=== PATIENT | male | born 2005 ===

== ENCOUNTER 2025-01-18 21:57 | Emergency (ER) | payer MEDICAID, SELFPAY ==
--- NOTE | ~2025-01-18 | XR_ITS ---
CLINICAL HISTORY: post injury 2 view left knee Comparison: None Findings: No fractures or dislocations. No significant loss of joint space, osteophytes, or erosions. [id number] joint effusion. No radiopaque foreign body. IMPRESSION: 1. No acute fracture or dislocation. 2. Joint effusion. This document has been electronically signed by: Nereyda Green MD on 01/18/2025 22:40:38
[2025-01-18 22:01] VITALS: BP 117/57; PULSE 70; RESP 16; TEMP 36.9; O2SAT 98; BMI 28.9
--- NOTE | 2025-01-19 00:51 | ED.LOWEXIN ---
HPI - Extremity Injury (Lower) General Chief Complaint: Extremity Injury, Lower Stated Complaint: left knee inj Time Seen by Provider: 01/19/25 00:51 Source: patient, RN notes reviewed and other (significant other) Mode of arrival: ambulatory Limitations: no limitations History of Present Illness ED Provider: Quiana Green PA-C HPI Narrative: 19-year-old male presenting to emergency department today for evaluation of left-sided knee discomfort. He reports he has been aggravating him for several months now. He does go to college and he recently just finishing he likes to play basketball in his down time. He does lot of pivoting and shifting in this and notices that the more he does this the more it aggravates his knee. He points to the area just lateral and superior to his patella. He denies any pain posteriorly radiating down or upwards towards her hip ankle or knee. He has no falls and no trauma. Denying any paresthesias or weakness. He does report today while playing basketball he did a pivoting shifting and felt a popping sensation in his knee. Reports that he is able to bear weight but it is painful especially the more that he walks. He has no known prior trauma to this area in the past. Right knee is unaffected. He tried icing at home and Tylenol and while icing has helped Tylenol has made no difference. He did take Motrin at 02:00 yesterday afternoon and it helped more. He was concerned about going back to his hometown without having his knee evaluated for sought medical attention here. Related Data Allergies Allergy/AdvReac Type Severity Reaction Status Date / Time No Known Allergies Allergy Verified 01/18/25 22:03 Review of Systems Review of Systems: Yes all other systems are reviewed and are negative [facility] Past Medical History Attestation statement: The following information was validated with the patient. Source: nursing notes reviewed Social History Social History Advance Directives: No Do you have a plan to hurt others: No Plan Physical Exam Vital Signs: Vital Signs: Last Vital Signs Temp 98.5 F 01/18/25 22:01 Pulse 70 01/18/25 22:01 Resp 16 01/18/25 22:01 BP 117/57 L 01/18/25 22:01 Pulse Ox 98 01/18/25 22:01 O2 Del Method Room Air 01/18/25 22:01 BMI result Body Mass Index 28.9 General: Appears in no acute distress, appears well nourished body habitus is normal, appears stated age. No septic or ill-appearing. Vitals reviewed normal, PMH/Social and Surgical hx reviewed including allergies and current medications. Head: Normocephalic, no obvious trauma or skin lesions noted. Eyes: EOMI ENMT: moist oral mucosa Neck: trachea midline Cardiovascular: peripheral perfusion normal, Regular heart rate Respiratory: no respiratory distress Abdomen: nondistended Extremities: warm and moving without difficulty unless otherwise detailed in physical exam if applicable. Patient is mildly tender to palpation over his left anterior knee over the area of the lateral femoral condyle. There is no soft tissue swelling or erythema or ecchymosis. No instability noted. Negative anterior/posterior drawer no laxity noted of the medial collateral lateral collateral ligament. Negative Lenore test for both medial and lateral meniscus. Negative Homans and Beauchamp sign compartments are soft cap refill is less than 3 seconds distal pulses are 2+ gait is antalgic with favoring of the left lower extremity. Able to move the distal extremity without any difficulty. DTRs are intact no bony tenderness of the rest of the left lower extremity or right lower extremity Psych: Cooperative Neuro: Alert and oriented. Const: General: cooperative and healthy appearing Medical Decision Making Medical Decision Making MDM Narrative: Patient presents to ED today for evaluation of left-sided knee pain . SHALINI is repetitive pivoting and shifting. This is not work related. H and P as above. Patient is afebrile with stable vitals and well-appearing. ?History and physical as stated above. ?Patient is neurovascular intact in the affected extremity. ?X-rays were obtained to further evaluate. At this time no evidence of NVC to warrant further work up/ intervention or consult. They show no acute fractures but there is small joint effusion. ?Patient's symptoms are consistent with a left knee sprain without any obvious evidence for internal knee derangement. ?Patient?s left knee ?was placed in an Angelito wrap. ?Discussed icing it, elevating and alternating ibuprofen and Tylenol for discomfort. ?Discussed that there is no significant improvement in the next 1 to 2 weeks to follow-up with an ?orthopedic clinic, information given. Discussed symptomatic treatment with the patient. ?Discussed return precautions. ?Patient verbalized understanding of the above plan and is in agreement with the above plan. ?The patient was discharged home in stable condition with return precautions. Differential Diagnosis Differential Diagnoses: The differential diagnosis associated with the presentation includes Left knee fracture left knee dislocation, neurovascular compromise, internal knee derangement, meniscal injury, collateral ligament injury, patellar femoral syndrome Admission/Observation Consideration of admission/observation: Escalation of care including admission/observation considered Patient would have been admitted to the hospital had his work up had any findings where hospital admission was appropriate and his clinical presentation warranted hospital admission. Independent Interpretation I performed an independent interpretation of an: Plain X-Ray Interpretation: No fracture or dislocation Radiology Impression Discussion of test interpretation with radiology: I have reviewed the radiologist's reading. Radiologist Impression: No fracture or dislocation small joint effusion noted Tests considered The following testing was considered but not selected: We are considered compartment pressure checking had there been any evidence for neurovascular compromise Prescription Management I considered prescription management with: Pain Medication Pain is well-controlled no additional pain medicine as required Discharge Plan Discharge Clinical Impression: Effusion of knee joint, left Left knee sprain Qualifiers: Encounter type: sequela Involved ligament of knee: unspecified ligament Qualified Code(s): S83.92XS - Sprain of unspecified site of left knee, sequela Patient Disposition: Home, Self-Care Instructions: Knee Sprain (ED), How to Use an Elastic Bandage (ED), Crutch Instructions (ED) Additional Instructions: You were evaluated for an injury to your knee.? You had x-rays done that did not show any acute fracture or other significant abnormality. Use the knee brace for the next 7-10 days.? Use Motrin/Advil (ibuprofen) 400-600 mg every 6 to 8 hours? as needed for pain. In addition, You can use Tylenol (acetaminophen) 650 mg every 6 hrs as needed for pain.? Do not take more than 3000 mg in one day! Use intermittent ice 4 or 5 times a day, 20 minutes at a time,? for a few days. Elevate the extremity as much as possible Return immediately or go to the ER for increased or uncontrolled pain, numbness, tingling, or weakness of extremities. Please see the orthopedist in followup if not improving over the next week. Please call to make an appointment. Referrals: [facility] [Provider Group] - 1 week Print Language: Slovak
[2025-01-19 01:26] VITALS: BP 117/57; PULSE 70; RESP 16; TEMP 36.9; O2SAT 98
== END 2025-01-19 01:26 | disposition home or self-care (01) ==
PROVIDERS: Emergency Provider Emergency Medicine
DX: M25.462 Effusion, left knee (principal); M25.562 Pain in left knee; S83.92XA Sprain of unspecified site of left knee, initial encounter; X50.9XXA Other and unspecified overexertion or strenuous movements or postures, initial encounter; Y93.67 Activity, basketball; Y92.310 Basketball court as the place of occurrence of the external cause; Y99.9 Unspecified external cause status
CPT/HCPCS: 73560; 99282; 99283

== ENCOUNTER → 2025-01-18 22:10 | Outpatient (BNV) | payer MEDICAID, SELFPAY | PROVIDERS: Visit Provider Specialist | DX: M25.462 Effusion, left knee (principal) | CPT/HCPCS: 73560 ==